=== PATIENT | male | born 1950 | race Caucasian/White ===

== ENCOUNTER 2019-08-11 14:03 | Observation (INO) ==
[2019-08-11] MEDS ORDERED: SODIUM CHLORIDE 0.9% 500 ML IV SCH (14:30)
[2019-08-11] MEDS ORDERED: SODIUM CHLORIDE 0.9% 1000ML 1,000 ML IV SCH (14:30)
[2019-08-11 14:46] LABS: Basophils # (auto) 0.02 K/uL (0-0.2); Basophils % (auto) 0.3 %; Eosinophils # (auto) 0.11 K/uL (0-0.5); Eosinophils % (auto) 1.5 %; Hematocrit (blood only) 34.2 % (42-52); Hemoglobin 11.9 g/dL (14.0-18.0); Immature Granulocytes # (auto) 0.07 K/uL (0.00-0.02); Lymphocytes # (auto) 2.14 K/uL (1.2-3.4); Lymphocytes % (auto) 30.1 %; Mean Corpuscular Hemoglobin 29.5 pg (25-34); Mean Corpuscular Hgb Conc 34.8 g/dL (32-36); Mean Corpuscular Volume 84.7 fL (80-100); Mean Platelet Volume 9.4 fL (7.4-10.4); Monocytes # (auto) 0.67 K/uL (0.11-0.59); Monocytes % (auto) 9.4 %; Neutrophils # (auto) 4.09 K/uL (1.4-6.5); Neutrophils % (auto) 57.7 %; Platelet Count 333 K/uL (130-400); RDW Coefficient of Variation 13.2 % (11.5-14.5); RDW Standard Deviation 40.1 fL (36.4-46.3); Red Blood Count 4.04 M/uL (4.7-6.1)
--- NOTE | 2019-08-11 14:59 | XRay Report ---
SINGLE VIEW CHEST CLINICAL HISTORY: Syncope. FINDINGS: An AP, portable, upright chest radiograph is compared to study dated 05/03/2010. The heart i s enlarged. The pulmonary vasculature is noncongested. There is elevation of the right hemidiaphragm with associated atelectasis. No airspace consolidation or large pleural effusion is identified. No pn eumothorax is seen. The skeletal structures are osteopenic. The bony thorax is grossly intact. Degene rative change is noted in the shoulders. A punctate metallic foreign body projects over the right low er chest. IMPRESSION: Cardiomegaly with no acute cardiopulmonary abnormality. ACT 112: Negative or not required by law. Electronically signed by: Juan Carlos Alcocer M.D. 08/11/2019 2:58 PM
[2019-08-11 15:24] LABS: Alanine Aminotransferase 38 U/L (12-78); Albumin Globulin Ratio 0.9 (0.9-2); Albumin Level 3.5 gm/dl (3.4-5.0); Alkaline Phosphatase 40 U/L (45-117); BUN Creatinine Ratio 12.8 (10-20); Bilirubin,Total 0.3 mg/dl (0.2-1); Blood Urea Nitrogen 16 mg/dl (7-18); Calcium 8.8 mg/dl (8.5-10.1); Carbon Dioxide 22 mmol/L (21-32); Chloride 108 mmol/L (98-107); Creatinine Clr Calc Pharmacy 67.3 ml/min; Est GFR (African American) 68.5; Est GFR (Non-African American) 59.1; Globulin 3.7 gm/dl (2.5-4.0); Glucose 138 mg/dl (70-99); Sodium 138 mmol/L (136-145); Total Protein 7.2 gm/dl (6.4-8.2); Troponin I < 0.015 ng/ml (0-0.045)
--- NOTE | 2019-08-11 15:24 | CT Scan Report ---
CT SCAN OF THE ABDOMEN AND PELVIS WITHOUT IV CONTRAST CLINICAL HISTORY: Syncope. Generalized abdominal pain. COMPARISON STUDY: Radiographs of the lumbar spine dated 07/14/2019. TECHNIQUE: CT scan of the abdomen and pelvis is performed from the lung bases to the proximal femora. Images are reviewed in the axial, sagittal, and coronal planes. IV contrast was not administered for this examination as per the referring clinician. Note that the examination was performed in suboptim al fashion without oral and IV contrast. A dose lowering technique was utilized adhering to the princ iplefrem of KATELYN. CT DOSE: 882.89 mGy.cm FINDINGS: Lung bases: The heart is normal in size and without pericardial effusion. There is a calcified granul tao present in the left lower lobe. The lung bases are otherwise clear noting dependent atelectasis. A metallic foreign body is present within the right anterior chest wall as seen on image #98. A small hiatal hernia is observed. Liver: The unenhanced liver is normal in size, contour, and attenuation. There is no intrahepatic alecia iary ductal dilatation. Gallbladder: Unremarkable. Spleen: Normal in size and attenuation. Scattered calcified splenic granulomas are noted. Pancreas: The unenhanced pancreas is moderately atrophic and grossly unremarkable. Adrenal glands: Unremarkable. Kidneys: The unenhanced kidneys demonstrate cortical atrophy and are without hydronephrosis. There is a 4 mm nonobstructing calculus is noted on the right. There is no evidence of contour deforming jennifer l mass lesion. Abdominal vasculature: The abdominal aorta is normal in course and caliber noting mild atheroscleroti c calcification. Bowel: There is no bowel obstruction. Moderate constipation is observed. The appendix is well-visual ized and normal. Peritoneum: There is no intraperitoneal free air or abdominal ascites. There is mild nonspecific hazi ness in the central mesentery. A small fat-containing umbilical hernia is noted. Lymphadenopathy: None. Pelvic viscera: The bladder, prostate, and seminal vesicles are normal as visualized. Skeletal structures: The skeletal structures are osteopenic. No lytic or blastic lesions are seen. IMPRESSION: 1. There is no evidence of solid organ injury in the abdomen or pelvis on this unenhanced examination . 2. Moderate constipation. 3. There is nonspecific mesenteric haziness, which is of indeterminant etiology and significance. 4. Right-sided nephrolithiasis. 5. Additional findings as above. ACT 112: Negative or not required by law. Electronically signed by: Juan Carlos Alcocer M.D. 08/11/2019 3:23 PM
[2019-08-11 15:56] LABS: Magnesium 2.1 mg/dl (1.8-2.4)
--- NOTE | 2019-08-11 16:30 | Electrocardiogram Report ---
Test Reason : Blood Pressure : / mmHG Vent. Rate : 074 BPM Atrial Rate : 074 BPM P-R Int : 188 ms QRS Dur : 088 ms QT Int : 422 ms P-R-T Axes : 051 049 052 degrees QTc Int : 468 ms Normal sinus rhythm Diffuse Nonspecific T wave abnormality Abnormal ECG When compared with ECG of 24-APR-2010 15:36, Diffuse Nonspecific T wave abnormality now present Confirmed by Juvencio Hough ([id number]) on 08/11/2019 4:30:10 PM Referred By: Confirmed By:Juvencio Hough
[2019-08-11] MEDS ORDERED: ONDANSETRON INJ 2 MG/ML 2 ML VIAL IV STA (17:04)
[2019-08-11] MEDS ORDERED: MoRPHine SULFATE 4 MG/ML 1 ML CARP\\VIAL IV STA (17:04)
[2019-08-11] MEDS ORDERED: HYDROmorphone INJ 0.5 MG/0.5 ML SYR IV STA (18:12)
--- NOTE | 2019-08-11 18:39 | Discharge Summary ---
Date of Service August 11, 2019 Discharge Data Allergies Allergy/AdvReac Type Severity Reaction Status Date / Time No Known Allergies Allergy Unverified 08/11/19 14:52 Consultations 08/11/19 17:29 ED Decision to Admit Stat Ordered Studies 08/11/19 14:07 US point of care ultrasound Stat 08/11/19 14:23 CT abd pelvis wo con Stat Discharge Plan Visit Data Patient Disposition: Being Evaluated by Hospitalist Forms Stand Alone Forms: [facility] Prescriptions Prescriptions: No Action citalopram 40 mg tablet 40 mg PO QAM RF: 0 metformin 1,000 mg tablet 1,000 mg PO BID RF: 0 oxycodone-acetaminophen [Percocet] 5-325 mg tablet 1 tab PO Q6H PRN (Reason: Pain) RF: 0 cyclobenzaprine 10 mg tablet 10 mg PO TID PRN (Reason: Muscle Spasm) RF: 0 naproxen [Naprosyn] 500 mg Tablet 500 mg PO BID PRN (Reason: Pain) RF: 0 fenofibrate nanocrystallized 145 mg tablet 145 mg PO QAM RF: 0 Equate Multivitamin Gummie Vit 2 tab PO QAM RF: 0 Referrals Referrals: RAJESH HARDEN [Other]
--- NOTE | 2019-08-11 18:46 | History & Physical Report ---
Date of Service August 11, 2019 Assessment & Plan (1) Syncope: Present on admission after witness 2 syncopal episodes after having abdominal pain and vomiting Possible related to vasovagal No focal neuro deficit Will monitor in Tele Will get a resting ECHO Continue monitor closely (2) Abdominal pain: Abdominal hernia CT abd/pelvis showed moderate constipation and nonspecific mesenteric haziness, which is of indeterminant etiology and significance. Abdominal hernia seems to get bigger as per family Will consult surgery (3) Back pain with left-sided radiculopathy: Chronic back pain was schedule to have a MRI of the back yesterday Continue pain control with IV morphine and oxycodone Will talk to Dr. Walton to see if he wants him to get the MRI while inpatient Consider PT/OT eval Diabetes type 2 Will hold metformin Check Hba1c On Novolog sliding scale Monitor BP Obesity Counseling on weight loss DVT px on Heparin subq CODE STATUS FULL CODE History of Present Illness Chief Complaint: Syncope/Abdominal Pain Primary Care Provider: Evita Thakkar, DO 69 yo M with PMH of Diabetes, chronic back pain, obesity was brought to the ER for syncopal episodes. Pt said that while on his way to get his MRI back, he said that he developed severe abdominal pain where he felt that he had to use the bathroom and sweating. He said that he felt dizzy. He said that his son was driving and pulled over. He said that he vomited and passed out. The son said that his eyes were rolling and his dad was unresponsive for about 2 minutes. Son said that he was scared and started to do CPR on his dad. He said that his dad was soak with sweat. Pt has a second episode of syncope while coming to the hospital by EMS. as per EMS his BP dropped during the episode. Pt said that he did not have any chest pain or palpitation during the episode. Pt said that he has been having a lot of back pain that radiating to his LLE. He said that he was scheduled to have an MRI done today. Son said that his abdominal hernia is getting bigger and causing him to have abdominal tenderness. Currently pt denies any chest pain, palpitation, dizziness and SOB. Allergies Allergy/AdvReac Type Severity Reaction Status Date / Time No Known Allergies Allergy Unverified 08/11/19 14:52 Home Medications Home Medications Medication Instructions Recorded Confirmed Type citalopram 40 mg tablet 40 mg PO QAM 07/14/19 08/11/19 History metformin 1,000 mg tablet 1,000 mg PO BID 07/14/19 08/11/19 History oxycodone-acetaminophen 5 mg-325 1 tab PO Q6H PRN 07/14/19 08/11/19 History mg tablet Equate Multivitamin Gummie Vit 2 tab PO QAM 08/11/19 08/11/19 History cyclobenzaprine 10 mg PO TID PRN 08/11/19 08/11/19 History fenofibrate nanocrystallized 145 mg PO QAM 08/11/19 08/11/19 History naproxen [Naprosyn] 500 mg PO BID PRN 08/11/19 08/11/19 History Past Med/Surg History Medical History Diabetes Dyslipidemia Hernia Lumbar spondylosis Obesity Social History Preferred Language: Azeri Communication Ability: Effective Beliefs That Will Affect Care: None Current Living Situation: Other Current Living Situation Comment: lives with a friend Feels Safe at Home: Yes Safety Concerns: Feels Safe At This Time Smoking Status: Never smoker Hx Alcohol Use: No Hx Substance Use: No Review of Systems Review of Systems: All systems reviewed & are unremarkable except as noted in HPI & below Physical Exam Physical Exam: General- No acute distress Head- atraumatic Eyes- PERRL, EOMI, ENT- oropharynx clear Neck- supple, no JVD Lungs- clear to auscultation Heart- regular rhythm; no murmur Abdomen- normal bowel sounds, +tenderness, +abdominal hernia Extremities- no calf tenderness Neuro- alert, oriented x 3; PERRL, EOMI; no facial palsy; no dysarthria Skin- warm & dry Results & Data Vital Signs (Past 12 Hours) Vital Signs Temp Pulse Resp BP Pulse Ox 08/11/19 18:30 72 21 133/85 96 08/11/19 18:00 73 20 122/80 96 08/11/19 17:30 71 14 132/86 97 08/11/19 17:00 68 17 163/93 H 98 08/11/19 16:30 68 18 153/87 H 98 08/11/19 16:00 76 14 109/86 100 08/11/19 15:30 65 12 140/83 98 08/11/19 15:05 68 25 H 130/86 99 08/11/19 14:30 69 18 108/75 93 08/11/19 14:12 36.3 C L 67 20 109/[address] SCAN OF THE ABDOMEN AND PELVIS WITHOUT IV CONTRAST CLINICAL HISTORY: Syncope. Generalized abdominal pain. COMPARISON STUDY: Radiographs of the lumbar spine dated 07/14/2019. TECHNIQUE: CT scan of the abdomen and pelvis is performed from the lung bases to the proximal femora. Images are reviewed in the axial, sagittal, and coronal planes. IV contrast was not administered for this examination as per the referring clinician. Note that the examination was performed in suboptimal fashion without oral and IV contrast. A dose lowering technique was utilized adhering to the principles of ALARA. CT DOSE: 882.89 mGy.cm FINDINGS: Lung bases: The heart is normal in size and without pericardial effusion. There is a calcified granuloma present in the left lower lobe. The lung bases are otherwise clear noting dependent atelectasis. A metallic foreign body is present within the right anterior chest wall as seen on image #98. A small hiatal hernia is observed. Liver: The unenhanced liver is normal in size, contour, and attenuation. There is no intrahepatic biliary ductal dilatation. Gallbladder: Unremarkable. Spleen: Normal in size and attenuation. Scattered calcified splenic granulomas are noted. Pancreas: The unenhanced pancreas is moderately atrophic and grossly unremarkable. Adrenal glands: Unremarkable. Kidneys: The unenhanced kidneys demonstrate cortical atrophy and are without hydronephrosis. There is a 4 mm nonobstructing calculus is noted on the right. There is no evidence of contour deforming renal mass lesion. Abdominal vasculature: The abdominal aorta is normal in course and caliber noting mild atherosclerotic calcification. Bowel: There is no bowel obstruction. Moderate constipation is observed. The appendix is well-visualized and normal. Peritoneum: There is no intraperitoneal free air or abdominal ascites. There is mild nonspecific haziness in the central mesentery. A small fat-containing um bilical hernia is noted. Lymphadenopathy: None. Pelvic viscera: The bladder, prostate, and seminal vesicles are normal as visualized. Skeletal structures: The skeletal structures are osteopenic. No lytic or blastic lesions are seen. IMPRESSION: 1. There is no evidence of solid organ injury in the abdomen or pelvis on this unenhanced examination. 2. Moderate constipation. 3. There is nonspecific mesenteric haziness, which is of indeterminant etiology and significance. 4. Right-sided nephrolithiasis. 5. Additional findings as above. ACT 112: Negative or not required by law. Electronically signed by: Juan Carlos Alcocer M.D. 08/11/2019 3:23 PM Dictated: 08/11/19 1509 Transcribed: 08/11/19 1516 SINGLE VIEW CHEST CLINICAL HISTORY: Syncope. FINDINGS: An AP, portable, upright chest radiograph is compared to study dated 05/03/2010. The heart is enlarged. The pulmonary vasculature is noncongested. There is elevation of the right hemidiaphragm with associated atelectasis. No a irspace consolidation or large pleural effusion is identified. No pneumothorax is seen. The skeletal structures are osteopenic. The bony thorax is grossly intact. Degenerative change is noted in the shoulders. A punctate metallic foreign body projects over the right lower chest. IMPRESSION: Cardiomegaly with no acute cardiopulmonary abnormality. ACT 112: Negative or not required by law. Electronically signed by: Juan Carlos Alcocer M.D. 08/11/2019 2:58 PM Dictated: 08/11/19 1457 Transcribed: 08/11/19 1457 (1) Syncope Syncope type: unspecified Qualified Code(s): R55 - Syncope and collapse (2) Abdominal pain Abdominal location: unspecified location Qualified Code(s): R10.9 - Unspecified abdominal pain
[2019-08-11] MEDS ORDERED: MoRPHine SULFATE 2 MG/ML CARP IV PRN (19:54)
[2019-08-11] MEDS ORDERED: CARBOHYDRATES FOR HYPOGLYCEMIA PO PRN (19:54)
[2019-08-11] MEDS ORDERED: POLYETHYLENE (MIRALAX) 17 GM PACK PO PRN (19:54)
[2019-08-11] MEDS ORDERED: ONDANSETRON INJ 2 MG/ML 2 ML VIAL IV PRN (19:54)
[2019-08-11] MEDS ORDERED: GLUCOSE 10 TABS/TUBE PO PRN (19:54)
[2019-08-11] MEDS ORDERED: CYCLOBENZAPRINE HCL 10 MG TAB PO PRN (19:54)
[2019-08-11] MEDS ORDERED: GLUCAGON FOR INJ 1 MG VIAL SQ PRN (19:54)
[2019-08-11] MEDS ORDERED: OXYCODONE/ACETAMINOPHEN 5mg/325mg TAB PO PRN (19:54)
[2019-08-11] MEDS ORDERED: GLUCOSE 40% GEL 15 GM TUBE PO PRN (19:54)
[2019-08-11] MEDS ORDERED: DEXTROSE 50% 50 ML SYRINGE IV PRN (19:54)
--- NOTE | 2019-08-11 20:55 | Emergency Department Note ---
Entered by Cherelle Ramos acting as a scribe for ED Provider Note CHIEF COMPLAINT: Abdominal pain HISTORY OF PRESENT ILLNESS: The patient is a 69 year old male who presents to the Emergency Room with complaints of a syncopal episode occurred this afternoon. The patient reports that he was driving to an MRI when he started having a severe pain in his abdomen that he rates as a 10/10. He states that he had some associated nausea. He notes that he then became syncopal. The patient's friend reports that the patient was pale and diaphoretic when he regained consciousness. His friend states that the patient's eyes rolled back into his head during the syncopal episode. The patient notes that he felt like he needed to have a bowel movement after he woke up. He states that he feels generally well upon exam. He denies any similar episodes in the past. He denies any recent travel. He denies any past abdominal surgeries. He notes that he has a history of chronic back pain and has had difficulty walking recently. The patient arrived to the ED via EMS. EMS reports that the patient continued to be pale and diaphoretic when they arrived. EMS states that the patient's blood pressure was noted to be 90/60 at that time. EMS notes that the patient had a second syncopal episode in the ambulance on the way to the ED. EMS states that t he patient's blood pressure dropped to 84/50 before recovering to 110/60 upon arrival to the ED. EMS notes that the patient's heart rate dropped to 40bpm briefly before recovering. EMS reports that the patient is diabetic and that his blood glucose was 155mg/dL. Pt denies LOC, headache, fevers, chills, visual changes, neck pain, chest pain, breathing difficulties, vomiting, melena, hematochezia, urinary symptoms, numbness, lymphadenopathy, rash, or other complaints. REVIEW OF SYSTEMS: See HPI for pertinent positives and negatives. A total of ten systems were reviewed and were otherwise negative. PMHx/PSHx: Hernia Lumbar spondylosis SOCIAL HISTORY: Patient lives at home. He is a never smoker. PHYSICAL EXAM: GENERAL: Awake, alert, pale and tired appearing, in no distress HENT: Normocephalic, atraumatic. Oropharynx unremarkable. EYES: PERRL. Normal conjunctiva. Sclera non-icteric. NECK: Inspection normal. Non-tender. Supple. No nuchal rigidity. FROM. No masses. RESPIRATORY: Clear to auscultation. No wheezes. No rales. Normal respiratory effort. CARDIAC: Normal rate. Normal rhythm. No murmurs. No rubs. Extremities warm and well perfused. Pulses equal. No JVD. GI: Soft. No tenderness to palpation. No rebound or guarding. Reducible umbilical hernia. Diastasis of rectus muscles. RECTAL: Deferred. MUSCULOSKELETAL: Atraumatic. Chest examination reveals no tenderness. The back is symmetrical on inspection without obvious abnormality. There is no CVA tenderness to palpation. No joint edema. LOWER EXTREMITIES: Calves are equal size bilaterally and non-tender. No edema. No discoloration. NEURO: Normal sensorium. No sensory or motor deficits noted. SKIN: No rash or jaundice noted. EMERGENCY DEPARTMENT COURSE: 1410: The patient was evaluated in room B12B, and a complete history and physical examination were performed. 1650: I updated the patient on his current lab and imaging results. Patient is experiencing pain secondary to sciatica and additional medication has been or dered. The patient verbalized agreement with the treatment plan. He will be evaluated for further care by a hospitalist. 1735: I discussed the patient's case with Ernie Yang, who will juliet luate the patient for further management and care. MEDICAL DECISION MAKING: Continuous Cardiac Monitoring: An order was placed for continuous cardiac monitoring. The monitor shows a rate of [] with [rhythm]. Triage Nursing notes reviewed and agree them. Additional history obtained from the patient's friend and family The patient's history was concerning for syncope abdominal pain. Differential diagnosis: Etiologies such as infection, hypoglycemia, electrolyte abnormalities, cardiac sources, intracerebral event, toxicologic, neurologic, renal colic, obstruction, AAA, as well as others were entertained. Physical examination: As above. Patient with nonfocal. Abdominal examination did not reveal any significant tenderness. ER treatment provided: IV hydration with normal saline On reassessment the patient felt increasing low back pain radiating into his leg. This is the issue that he has had chronically and why he was having the MRI. IV Zofran 4 mg IV morphine 4 mg The patient still had pain. IV Dilaudid Diagnostics interpretation by me: ECG: Sinus rhythm without dysrhythmia or ischemia. The labs revealed an unremarkable CBC and chemistry panel except for slight anemia. Imaging studies: A bedside fast examination was performed by me and did not reveal any acute findings as noted below. CT imaging of the abdomen and pelvis was performed and revealed some nonspecific stranding in the mesentery. There were no acute findings otherwise. Chest x-ray was performed and showed some mild cardiomegaly otherwise was negative. The patient had 2 syncopal episodes and had abdominal pain. The exact etiology is not obvious at this time but given the scenario further management and monitoring in the hospital is warranted. Consultation: A consultation was placed with the hospitalist. The case was discussed and diagnostics were reviewed. The patient was evaluated in the ER for further treatment. Limited Point of Care FAST Ultrasound performed by me: Indication: Syncope and abdominal pain Findings: Limited cardiac ultrasonography via subxiphoid and parasternal long view showed cardiac wall motion activity, no pericardial fluid, no tamponade. Limited abdominal ultrasound revealed no free fluid within Morrisons pouch, splenorenal space, or the pouch of Kwesi. Impression: Negative FAST exam. IMPRESSION: Syncope Abdominal pain PLAN: Being evaluated by a hospitalist The scribe's documentation has been prepared under my direction and personally reviewed by me in its entirety. I confirm that the note above accurately reflects all work, treatment, procedures, and medical decision making performed by me. Impression & Plan Syncope, Abdominal pain Past Med/Surg History Medical History Hernia Social History Preferred Language: Yemeni Communication Ability: Effective Beliefs That Will Affect Care: None Current Living Situation: Other Current Living Situation Comment: lives with a friend Feels Safe at Home: Yes Safety Concerns: Feels Safe At This Time Smoking Status: Never smoker Hx Alcohol Use: No Hx Substance Use: No Results & Data Vital Signs Vital Signs - 24 hr 08/11/19 14:12 08/11/19 14:30 08/11/19 15:05 Temperature 36.3 C L Temperature Source Oral Pulse Rate 67 69 68 Pulse Rate from SpO2 Sensor 69 68 Respiratory Rate 20 18 25 H Respiratory Effort / Characteristics Non-Labored Respiratory Depth Normal Blood Pressure 109/72 108/75 130/86 Blood Pressure Mean 84 83 89 Blood Pressure Position Sitting Pulse Oximetry 93 93 99 Oxygen Delivery Method Room Air Room Air Sepsis Recent Fever Within 48 Hours No Sepsis Action Taken by Nursing No Action Required 08/11/19 15:30 08/11/19 16:00 08/11/19 16:30 Temperature Temperature Source Pulse Rate 65 76 68 Pulse Rate from SpO2 Sensor 66 76 68 Respiratory Rate 12 14 18 Respiratory Effort / Characteristics Respiratory Depth Blood Pressure 140/83 109/86 153/87 H Blood Pressure Mean 102 92 109 Blood Pressure Position Pulse Oximetry 98 100 98 Oxygen Delivery Method Room Air Room Air Room Air Sepsis Recent Fever Within 48 Hours Sepsis Action Taken by Nursing 08/11/19 17:00 08/11/19 17:30 08/11/19 18:00 Temperature Temperature Source Pulse Rate 68 71 73 Pulse Rate from SpO2 Sensor 69 70 73 Respiratory Rate 17 14 20 Respiratory Effort / Characteristics Respiratory Depth Blood Pressure 163/93 H 132/86 122/80 Blood Pressure Mean 123 92 87 Blood Pressure Position Pulse Oximetry 98 97 96 Oxygen Delivery Method Room Air Room Air Room Air Sepsis Recent Fever Within 48 Hours Sepsis Action Taken by Nursing 08/11/19 18:30 08/11/19 19:00 Temperature Temperature Source Pulse Rate 72 70 Pulse Rate from SpO2 Sensor 72 70 Respiratory Rate 21 16 Respiratory Effort / Characteristics Respiratory Depth Blood Pressure 133/85 131/84 Blood Pressure Mean 91 94 Blood Pressure Position Pulse Oximetry 96 95 Oxygen Delivery Method Room Air Room Air Sepsis Recent Fever Within 48 Hours Sepsis Action Taken by Snf Medications Current Medication List: was personally reviewed by me Laboratory Data Attestation: I reviewed the patient's lab results. Result diagrams: 08/11/19 14:30 08/11/19 15:28 Lab Results 08/11/19 08/11/19 08/11/19 Range/Units 14:30 14:30 15:28 WBC 7.10 (4.8-10.8) K/uL RBC 4.04 L (4.7-6.1) M/uL Hgb 11.9 L (14.0-18.0) g/dL Hct 34.2 L (42-52) % MCV 84.7 (80-100) fL MCH 29.5 (25-34) pg MCHC 34.8 (32-36) g/dL RDW Std Deviation 40.1 (36.4-46.3) fL RDW Coeff of Jonny 13.2 (11.5-14.5) % Plt Count 333 (130-400) K/uL MPV 9.4 (7.4-10.4) fL Immature Gran % (Auto) 1.0 % Neut % (Auto) 57.7 % Lymph % (Auto) 30.1 % Aurora % (Auto) 9.4 % Eos % (Auto) 1.5 % Baso % (Auto) 0.3 % Immature Gran # (Auto) 0.07 H (0.00-0.02) K/uL Neut # (Auto) 4.09 (1.4-6.5) K/uL Lymph # (Auto) 2.14 (1.2-3.4) K/uL Aurora # (Auto) 0.67 H (0.11-0.59) K/uL Eos # (Auto) 0.11 (0-0.5) K/uL Baso # (Auto) 0.02 (0-0.2) K/uL Sodium 138 (136-145) mmol/L Potassium 4.0 (3.5-5.1) mmol/L Chloride 108 H (98-107) mmol/L Carbon Dioxide 22 (21-32) mmol/L Anion Gap 8.0 (3-11) BUN 16 (7-18) mg/dl Creatinine 1.23 (0.6-1.4) mg/dl Est Cr Clr Drug Dosing 67.3 ml/min Est GFR ( Amer) 68.5 Est GFR (Non-Af Amer) 59.1 BUN/Creatinine Ratio 12.8 (10-20) Glucose 138 H (70-99) mg/dl Calcium 8.8 (8.5-10.1) mg/dl Magnesium 2.1 (1.8-2.4) mg/dl Total Bilirubin 0.3 (0.2-1) mg/dl AST 14 L (15-37) U/L ALT 38 (12-78) U/L Alkaline Phosphatase 40 L (45-117) U/L Troponin I < 0.015 (0-0.045) ng/ml Total Protein 7.2 (6.4-8.2) gm/dl Albumin 3.5 (3.4-5.0) gm/dl Globulin 3.7 (2.5-4.0) gm/dl Albumin/Globulin Ratio 0.9 (0.9-2) TSH 2.260 (0.300-4.500) uIu/ml Administered Medications Sodium Chloride (Nss 1000ml) 1,000 mls @ 125 mls/hr IV .Q8H HANNAH Stop: 08/11/19 22:29 Last Admin: 08/11/19 15:30 Dose: 125 mls/hr Documented by: [id number] Discontinued Medications Hydromorphone HCl (Dilaudid) 0.5 mg IV NOW STA Stop: 08/11/19 18:13 Last Admin: 08/11/19 18:28 Dose: 0.5 mg Documented by: [id number] Sodium Chloride (Nss) 500 mls @ 999 mls/hr IV .Q31M HANNAH Stop: 08/11/19 15:00 Last Infusion: 08/11/19 15:19 Dose: 0 mls/hr Documented by: [id number] Admin: 08/11/19 14:40 Dose: 999 mls/hr Documented by: [id number] Morphine Sulfate (Morphine Sulfate) 4 mg IV NOW STA Stop: 08/11/19 17:05 Last Admin: 08/11/19 17:18 Dose: 4 mg Documented by: [id number] Ondansetron HCl (Zofran) 4 mg IV NOW STA Stop: 08/11/19 17:05 Last Admin: 08/11/19 17:18 Dose: 4 mg Documented by: [id number] Imaging Data Radiologist's Impression: Radiology results as stated below per my review and the radiologist's interpretation: CT SCAN OF THE ABDOMEN AND PELVIS WITHOUT IV CONTRAST CLINICAL HISTORY: Syncope. Generalized abdominal pain. COMPARISON STUDY: Radiographs of the lumbar spine dated 07/14/2019. TECHNIQUE: CT scan of the abdomen and pelvis is performed from the lung bases to the proximal femora. Images are reviewed in the axial, sagittal, and coronal planes. IV contrast was not administered for this examination as per the referring clinician. Note that the examination was performed in suboptimal fashion without oral and IV contrast. A dose lowering technique was utilized adhering to the principles of ALARA. CT DOSE: 882.89 mGy.cm FINDINGS: Lung bases: The heart is normal in size and without pericardial effusion. There is a calcified granuloma present in the left lower lobe. The lung bases are otherwise clear noting dependent atelectasis. A metallic foreign body is present within the right anterior chest wall as seen on image #98. A small hiatal hernia is observed. Liver: The unenhanced liver is normal in size, contour, and attenuation. There is no intrahepatic biliary ductal dilatation. Gallbladder: Unremarkable. Spleen: Normal in size and attenuation. Scattered calcified splenic granulomas a re noted. Pancreas: The unenhanced pancreas is moderately atrophic and grossly unremarkable. Adrenal glands: Unremarkable. Kidneys: The unenhanced kidneys demonstrate cortical atrophy and are without hydronephrosis. There is a 4 mm nonobstructing calculus is noted on the right. There is no evidence of contour deforming renal mass lesion. Abdominal vasculature: The abdominal aorta is normal in course and caliber noting mild atherosclerotic calcification. Bowel: There is no bowel obstruction. Moderate constipation is observed. The appendix is well-visualized and normal. Peritoneum: There is no intraperitoneal free air or abdominal ascites. There is mild nonspecific haziness in the central mesentery. A small fat-containing umbilical hernia is noted. Lymphadenopathy: None. Pelvic viscera: The bladder, prostate, and seminal vesicles are normal as visualized. Skeletal structures: The skeletal structures are osteopenic. No lytic or blastic lesions are seen. IMPRESSION: 1. There is no evidence of solid organ injury in the abdomen or pelvis on this unenhanced examination. 2. Moderate constipation. 3. There is nonspecific mesenteric haziness, which is of indeterminant etiology and significance. 4. Right-sided nephrolithiasis. 5. Additional findings as above. ACT 112: Negative or not required by law. Electronically signed by: Juan Carlos Alcocer M.D. 08/11/2019 3:23 PM SINGLE VIEW CHEST CLINICAL HISTORY: Syncope. FINDINGS: An AP, portable, upright chest radiograph is compared to study dated 05/03/2010. The heart is enlarged. The pulmonary vasculature is noncongested. There is elevation of the right hemidiaphragm with associated atelectasis. No airspace consolidation or large pleural effusion is identified. No pneumothorax is seen. The skeletal structures are osteopenic. The bony thorax is grossly intact. Degenerative change is noted in the shoulders. A punctate metallic foreign body projects over the right lower chest. IMPRESSION: Cardiomegaly with no acute cardiopulmonary abnormality. ACT 112: Negative or not required by law. Electronically signed by: Juan Carlos Alcocer M.D. 08/11/2019 2:58 PM ECG Data Attestation: I personally reviewed and interpreted this ECG as follows: Indication: + abdominal pain Rate (beats per minute): 74 Rhythm: normal sinus ECG Intervals/blocks: + Normal QRS and + Prolonged QT ECG [place]: + Normal ECG ST segments: + Nonspecific ST abnormalities; no ST depression and no ST elevation Blood Pressure Blood Pressure Findings: Normal blood pressure Discharge Plan Visit Data *Final* Discharge Date/Time: 08/11/19 19:17 Chief Complaint: Syncope Stated Complaint: syncope/abd pain ED Provider: Patricio Larios Discharge Problem: Syncope, Abdominal pain Patient Disposition: Admitted As Inpatient Discharge Instructions Interventions: ED Discharge Assessment Last Done: 08/11/19 19:17 Discharge Problem: Syncope Qualifiers: Syncope type: unspecified Qualified Code(s): R55 - Syncope and collapse Abdominal pain Qualifiers: Abdominal location: unspecified location Qualified Code(s): R10.9 - Unspecified abdominal pain The scribe's documentation has been prepared under my direction and personally reviewed by me in its entirety. I confirm that the note above accurately reflects all work, treatment, procedures, and medical decision making performed by me.
[2019-08-11] MEDS: INSULIN ASPART 100 UNITS/ML 3 ML PEN SC SCH (21:40)
[2019-08-11] MEDS: HEPARIN SOD 5,000 UNIT/0.5 ML VIAL SQ SCH (21:41)
[2019-08-11] MEDS ORDERED: HYDROmorphone INJ 0.5 MG/0.5 ML SYR ONE (23:36)
[2019-08-11] MEDS: HYDROmorphone INJ 0.5 MG/0.5 ML SYR IV PRN (23:38)
[2019-08-12] MEDS: HEPARIN SOD 5,000 UNIT/0.5 ML VIAL SQ SCH ×3 (06:10→21:50)
[2019-08-12] MEDS: HYDROmorphone INJ 0.5 MG/0.5 ML SYR IV PRN ×4 (06:11→21:53)
[2019-08-12 08:23] LABS: BUN Creatinine Ratio 11.3 (10-20); Calcium 8.8 mg/dl (8.5-10.1); Creatinine Clr Calc Pharmacy 80.5 ml/min; Est GFR (Non-African American) 75.9; Potassium 4.2 mmol/L (3.5-5.1)
[2019-08-12] MEDS: CITALOPRAM 40 MG TAB PO SCH (09:09)
[2019-08-12] MEDS: INSULIN ASPART 100 UNITS/ML 3 ML PEN SC SCH ×4 (09:09→20:34)
[2019-08-12] MEDS: FENOFIBRATE NANOCRYSTALLIZED 145 MG TABLET PO SCH (09:09)
--- NOTE | 2019-08-12 09:28 | Surgery Consultation ---
Date of Consultation August 12, 2019 Assessment & Plan (1) Diastasis recti: Has a tiny, asymptomatic umbilical hernia and diastasis recti. I explained this to him and reassured him that nothing needs to be done for his diastasis. Continue diet as tolerated. as above. no urgent surgical needs at this time. can f/u with me as an out-pt for the umbilical hernia if he chooses. suspect he had a vasovagal syncope. will sign off/call if needed. thank you. History of Present Illness Attending Physician: Sharmila Calderón MD History of Present Illness 69 y/o male had syncope while on his way to MRI/Dr. Walton for chronic lumbar pain. Had second episode while in the ambulance. Had some abdominal pain/felt like he had to have BM while prior to the pain beginning. Pain is now nearly resolved, has a little tenderness in LLQ. Has no had BM, recent constipation or diarrhea.No nausea at present, wants to have breakfast. Thought maybe his symptoms were related to undercooked breakfast sausage he had yesterday. Had recent colonoscopy although prep was incomplete and he has another one scheduled in a few months. We were asked to see him for a hernia. Allergies Allergy/AdvReac Type Severity Reaction Status Date / Time No Known Allergies Allergy Unverified 08/11/19 14:52 Home Medications Home Medications Medication Instructions Recorded Confirmed Type citalopram 40 mg tablet 40 mg PO QAM 07/14/19 08/11/19 History metformin 1,000 mg tablet 1,000 mg PO BID 07/14/19 08/11/19 History oxycodone-acetaminophen 5 mg-325 1 tab PO Q6H PRN 07/14/19 08/11/19 History mg tablet Equate Multivitamin Gummie Vit 2 tab PO QAM 08/11/19 08/11/19 History cyclobenzaprine 10 mg PO TID PRN 08/11/19 08/11/19 History fenofibrate nanocrystallized 145 mg PO QAM 08/11/19 08/11/19 History naproxen [Naprosyn] 500 mg PO BID PRN 08/11/19 08/11/19 History Patient History Medical History Diabetes Dyslipidemia Hernia Lumbar spondylosis Obesity Social History Preferred Language: Kinyarwanda Communication Ability: Effective Beliefs That Will Affect Care: None Current Living Situation: Other Current Living Situation Comment: lives with a friend Feels Safe at Home: Yes Safety Concerns: Feels Safe At This Time Smoking Status: Never smoker Hx Alcohol Use: No Hx Substance Use: No Review of Systems Constitutional: no fever and no chills Gastrointestinal: + abdominal pain, + nausea and + vomiting; no change in bow el habits, no change in stools, no constipation, no diarrhea/loose stools, no blood in stools and no melena Physical Exam Constitutional: WD/WN, vitals as above Respiratory: normal respiratory effort, lungs clear to auscultation Cardiovascular: RRR, no murmur, no edema Gastrointestinal (Abdomen): Percussion/Palpation: + abdomen tender (minimal LLQ) and abdomen soft less than pea sized umbilical hernia soft & easily reducible, has diastasis recti Results & Data Vital Signs (Past 12 Hours) Vital Signs Temp Pulse Resp BP Pulse Ox 08/12/19 07:40 36.6 C 72 20 149/89 H 94 08/12/19 03:10 36.8 C 76 18 131/89 92 08/11/19 23:45 36.9 C 78 18 138/84 93 PG Care Time/CCT Total # of Minutes Spent Total Time Spent with Patient: Total time spent is greater than 50% in coordination of care (as documented) at patient's floor/unit and/or counseling patient: Coding Level of Care Code 12180 Initial Inpt Care Lvl 1 Diagnoses Diastasis recti M62.08
[2019-08-12 10:13] LABS: Estimated Average Glucose 160 mg/dl; Hemoglobin A1C 7.2 % (4.5-5.6)
--- NOTE | 2019-08-12 10:35 | Ultrasound Report ---
US carotid doppler BI CLINICAL HISTORY: 69 years-old Male with syncope. Acute syncopal event COMPARISON: None TECHNIQUE: Multiple real time sonographic images of the carotid bifurcations were obtained assessing arredondo scale, color Doppler and spectral wave form appearance FINDINGS: RIGHT CAROTID: The peak systolic velocity within the right ICA is measured at62 cm/sec. The end candice stolic velocity measured 25 cm/sec. The ICA to CCA ratio measured 0.8 which correlates with a stenos is of 0-50%. Mild mixed plaque of the right carotid bulb and proximal right ICA. LEFT CAROTID: The peak systolic velocity within the left ICA is measured at59 cm/sec. The end diast olic velocity measured 25 cm/sec. The ICA to CCA ratio measured 0.7 which correlates with a stenosis of 0-50%. Mild mixed plaque of the left carotid bulb and proximal left ICA. There is normal antegrade vertebral flow bilaterally. Blood pressures were not conducted secondary to patient's upper extremity IV catheter. IMPRESSION: 1. No hemodynamically significant stenosis or significant atherosclerotic plaquing. 2. Normal antegrade vertebral flow bilaterally. ACT 112: Negative or not required by law. The above report was generated using voice recognition software. It may contain grammatical, syntax o r spelling errors. Electronically signed by: Benji Rodriguez M.D. 08/12/2019 10:34 AM
--- NOTE | 2019-08-12 14:53 | Electrocardiogram Report ---
Test Reason : Blood Pressure : / mmHG Vent. Rate : 073 BPM Atrial Rate : 073 BPM P-R Int : 190 ms QRS Dur : 090 ms QT Int : 416 ms P-R-T Axes : 065 055 057 degrees QTc Int : 458 ms Normal sinus rhythm Normal ECG When compared with ECG of 11-AUG-2019 14:10, Nonspecific T wave abnormality no longer present Confirmed by Juvencio Hough ([id number]) on 08/12/2019 2:53:39 PM Referred By: REFERRED SELF Confirmed By:Juvencio Hough
[2019-08-12] MEDS ORDERED: bisacodyL 5 MG TABEC PO ONE (17:09)
--- NOTE | 2019-08-12 18:51 | Hospitalist Progress Note ---
Date of Service August 12, 2019 Assessment & Plan (1) Syncope: Present on admission after witness 2 syncopal episodes after having abdominal pain and vomiting Possible related to vasovagal Carotid doppler showed no hemodynamically significant stenosis or significant atherosclerotic plaquing. ECHO showed no wall motion abnormality with EF btw 55-60 % No focal neuro deficit Continue monitor closely Clinically stable (2) Abdominal pain: Abdominal hernia CT abd/pelvis showed moderate constipation and nonspecific mesenteric haziness, which is of indeterminant etiology and significance. Surgery on board and no surgical intervention required at this time Continue monitor outpatient (3) Back pain with left-sided radiculopathy: Chronic back pain was schedule to have a MRI of the back yesterday but ended up in the hospital Continue pain control with IV morphine and oxycodone Case discussed with Dr. Walton and recommended to get the MRI without contrast of the back Base on the MRI result will decide if Dr. Walton wants to see him in the hospital or outpatient Consider PT/OT eval Diabetes type 2 Continue to hold metformin Hba1c 7.2 On Novolog sliding scale Monitor BS Obesity Counseling on weight loss DVT px on Heparin subq CODE STATUS FULL CODE Disposition Will discharge home if MRI Lumbar spine is unremarkable Admission and Anticipated Discharge Date Admission Date: August 11, 2019 Subjective Pt was seen and examined Lying in bed with no distress Pt said that he is having a lot of pain in his back He said that pain worsening with movement I spoke to Dr. Walton that recommended to get the MRI done while in the hospital Pt said that he has not had a BM in the last 2-3 days Denies any chest pain, palpitation and SOB Physical Exam Physical Exam: General- No acute distress Head- atraumatic Eyes- PERRL, EOMI, ENT- oropharynx clear Neck- supple, no JVD Lungs- clear to auscultation Heart- regular rhythm; no murmur Abdomen- normal bowel sounds, +tenderness, +abdominal hernia Extremities- no calf tenderness Neuro- alert, oriented x 3; PERRL, EOMI; no facial palsy; no dysarthria Skin- warm & dry Results & Data ([facility]) Vital Signs (Past 12 Hours) Vital Signs Temp Pulse Pulse Resp BP BP Pulse Ox 08/12/19 16:04 36.8 C 69 18 157/93 H 96 08/12/19 10:57 36.6 C 81 20 161/94 H 93 08/12/19 08:00 73 08/12/19 07:40 36.6 C 72 20 149/89 H 94 (1) Syncope Syncope type: unspecified Qualified Code(s): R55 - Syncope and collapse (2) Abdominal pain Abdominal location: unspecified location Qualified Code(s): R10.9 - Unspecified abdominal pain
--- NOTE | 2019-08-12 21:37 | Magnetic Resonance Report ---
MR lumbar spine wo con HISTORY: Back pain. Radiculopathy. back pain radiating to the back TECHNIQUE: Multiplanar multisequence MRI of the lumbar spine was performed without the use of contras t. COMPARISON: None. FINDINGS: For the purpose of the report the L5-S1 disc space will be located on axial image 27 of 30. Moderate degenerative disc changes throughout. Benign vertebral body hemangioma at L3. Moderate degen erative change vertebral endplates. L1-L2: No significant central canal or neural foraminal narrowing. L2-L3: Mild broad-based bulging disc. Mild impact anterior thecal sac. Minimal narrowing of the neura l foramina. L3-L4: Moderate multifactorial spinal stenosis. Broad-based disc herniation. Hypertrophic change post erior elements. Moderate narrowing of the neural foramina bilaterally. L4-L5: Mild multifactorial narrowing of the spinal canal. Mild broad-based bulging disc. Minimal impa ct upon the neural foramina. L5-S1: Broad-based left central bulging disc. Moderate narrowing left neural foramina. Minimal impact anterior thecal sac. Moderate deterioration of the posterior elements. IMPRESSION: 1. Moderate degenerative disc changes throughout. 2. Moderate rather significant multifactorial spinal stenosis L3-L4. 3. Broad-based bulging disc L4-L5 and L5-S1 with minimal disc bulges at L2-L3 ACT 112: Negative or not required by law. The above report was generated using voice recognition software. It may contain grammatical, syntax or spelling errors. Electronically signed by: Barrett Gusman M.D. 08/12/2019 9:35 PM
[2019-08-13] MEDS: HYDROmorphone INJ 0.5 MG/0.5 ML SYR IV PRN ×4 (02:02→13:52)
[2019-08-13] MEDS: HEPARIN SOD 5,000 UNIT/0.5 ML VIAL SQ SCH ×2 (06:46→14:33)
[2019-08-13 07:45] LABS: Appearance Urine Clear (Clear); Bilirubin Urine Negative (Negative); Blood Urine Negative (Negative); Color Urine Yellow; Glucose Urine UA Negative (Negative); Ketones Urine Negative (Negative); Leukocyte Esterase Urine Negative (Negative); Nitrite Urine Negative (Negative); Protein Urine Negative (Negative); Specific Gravity Urine 1.014 (1.000-1.030); Urobilinogen Urine Negative (Negative)
[2019-08-13] MEDS: INSULIN ASPART 100 UNITS/ML 3 ML PEN SC SCH ×2 (08:40→12:53)
[2019-08-13] MEDS: FENOFIBRATE NANOCRYSTALLIZED 145 MG TABLET PO SCH (09:32)
[2019-08-13] MEDS: CITALOPRAM 40 MG TAB PO SCH (09:32)
--- NOTE | 2019-08-13 14:00 | Hospitalist Progress Note ---
Date of Service August 13, 2019 Assessment & Plan (1) Syncope: Present on admission after witness 2 syncopal episodes after having abdominal pain and vomiting Possible related to vasovagal Carotid doppler showed no hemodynamically significant stenosis or significant atherosclerotic plaquing. ECHO showed no wall motion abnormality with EF btw 55-60 % No focal neuro deficit Continue monitor closely Resolved (2) Abdominal pain: Abdominal hernia CT abd/pelvis showed moderate constipation and nonspecific mesenteric haziness, which is of indeterminant etiology and significance. Surgery on board and no surgical intervention required at this time Tolerated diet Stable (3) Back pain with left-sided radiculopathy: Chronic back pain was schedule to have a MRI of the back yesterday but ended up in the hospital Continue pain control with IV morphine and oxycodone Case discussed with Dr. Walton and recommended to get the MRI without contrast of the back MRI done showed moderate degenerative disc changes throughout. Moderate rather significant multifactorial spinal stenosis L3-L4. Broad-based bulging disc L4-L5 and L5-S1 with minimal disc bulges at L2-L3 Dr. Walton (No official consult place) came to discussed the MRI finding with patient and son Dr. Walton recommended no surgical intervention for now, will conservative management Office of Dr. Walton will arrange for Steroid injection to be given by pain management outpatient OK with ortho to try medrol dose pack Follow up with ortho outpatient Diabetes type 2 Continue to hold metformin Hba1c 7.2 On Novolog sliding scale Will resume metformin on discharge Monitor BS Constipation Related to opioid Continue Miralax prn Obesity Counseling on weight loss DVT px on Heparin subq CODE STATUS FULL CODE Disposition Discharge home today Admission and Anticipated Discharge Date Admission Date: August 11, 2019 Subjective Pt was seen and examined Lying in bed with no distress Pt said that the dilaudid helps with the pain He said that pain worsening with movement Dr. Walton and myself reviewed the MRI result with patient and son Denies any chest pain, palpitation, dizziness and SOB Physical Exam Physical Exam: General- No acute distress Head- atraumatic Eyes- PERRL, EOMI, ENT- oropharynx clear Neck- supple, no JVD Lungs- clear to auscultation Heart- regular rhythm; no murmur Abdomen- normal bowel sounds, +mild tenderness, +abdominal hernia Extremities- no calf tenderness Neuro- alert, oriented x 3; PERRL, EOMI; no facial palsy; no dysarthria Skin- warm & dry Results & Data ([facility]) Vital Signs (Past 12 Hours) Vital Signs Temp Pulse Pulse Resp BP BP Pulse Ox 08/13/19 11:55 36.7 C 70 20 148/83 H 94 08/13/19 08:03 36.6 C 76 20 169/82 H 95 08/13/19 08:00 75 08/13/19 04:00 36.3 C L 70 16 163/84 H 95 (1) Syncope Syncope type: unspecified Qualified Code(s): R55 - Syncope and collapse (2) Abdominal pain Abdominal location: unspecified location Qualified Code(s): R10.9 - Unspecified abdominal pain
--- NOTE | 2019-08-15 08:34 | Discharge Summary ---
Date of Service August 13, 2019 Admission HPI Per Admitting Provider 69 yo M with PMH of Diabetes, chronic back pain, obesity was brought to the ER for syncopal episodes. Pt said that while on his way to get his MRI back, he said that he developed severe abdominal pain where he felt that he had to use the bathroom and sweating. He said that he felt dizzy. He said that his son was driving and pulled over. He said that he vomited and passed out. The son said that his eyes were rolling and his dad was unresponsive for about 2 minutes. Son said that he was scared and started to do CPR on his dad. He said that his dad was soak with sweat. Pt has a second episode of syncope while coming to the hospital by EMS. as per EMS his BP dropped during the episode. Pt said that he did not have any chest pain or palpitation during the episode. Pt said that he has been having a lot of back pain that radiating to his LLE. He said that he was scheduled to have an MRI done today. Son said that his abdominal hernia is getting bigger and causing him to have abdominal tenderness. Currently pt denies any chest pain, palpitation, dizziness and SOB. Admission Exam Per Admitting Provider General- No acute distress Head- atraumatic Eyes- PERRL, EOMI, ENT- oropharynx clear Neck- supple, no JVD Lungs- clear to auscultation Heart- regular rhythm; no murmur Abdomen- normal bowel sounds, +tenderness, +abdominal hernia Extremities- no calf tenderness Neuro- alert, oriented x 3; PERRL, EOMI; no facial palsy; no dysarthria Skin- warm & dry Principal Diagnosis Syncope: Abdominal pain: Back pain with left-sided radiculopathy: Diabetes type 2 Obesity Discharge Exam General- No acute distress Head- atraumatic Eyes- PERRL, EOMI, ENT- oropharynx clear Neck- supple, no JVD Lungs- clear to auscultation Heart- regular rhythm; no murmur Abdomen- normal bowel sounds, +mild tenderness, +abdominal hernia Extremities- no calf tenderness Neuro- alert, oriented x 3; PERRL, EOMI; no facial palsy; no dysarthria Skin- warm & dry Discharge Data Allergies Allergy/AdvReac Type Severity Reaction Status Date / Time No Known Allergies Allergy Unverified 08/11/19 14:52 Consultations 08/11/19 17:29 ED Decision to Admit Stat 08/11/19 19:54 Consult General Surgery Routine Ordered Studies 08/11/19 14:07 US point of care ultrasound Stat 08/11/19 14:23 CT abd pelvis wo con Stat 08/12/19 10:00 US carotid doppler BI Routine 08/12/19 15:29 MR lumbar spine wo con Routine CT SCAN OF THE ABDOMEN AND PELVIS WITHOUT IV CONTRAST CLINICAL HISTORY: Syncope. Generalized abdominal pain. COMPARISON STUDY: Radiographs of the lumbar spine dated 07/14/2019. TECHNIQUE: CT scan of the abdomen and pelvis is performed from the lung bases to the proximal femora. Images are reviewed in the axial, sagittal, and coronal planes. IV contrast was not administered for this examination as per the referring clinician. Note that the examination was performed in suboptimal fashion without oral and IV contrast. A dose lowering technique was utilized adhering to the principles of ALARA. CT DOSE: 882.89 mGy.cm FINDINGS: Lung bases: The heart is normal in size and without pericardial effusion. There is a calcified granuloma present in the left lower lobe. The lung bases are otherwise clear noting dependent atelectasis. A metallic foreign body is present within the right anterior chest wall as seen on image #98. A small hiatal hernia is observed. Liver: The unenhanced liver is normal in size, contour, and attenuation. There is no intrahepatic biliary ductal dilatation. Gallbladder: Unremarkable. Spleen: Normal in size and attenuation. Scattered calcified splenic granulomas are noted. Pancreas: The unenhanced pancreas is moderately atrophic and grossly unremarkable. Adrenal glands: Unremarkable. Kidneys: The unenhanced kidneys demonstrate cortical atrophy and are without hydronephrosis. There is a 4 mm nonobstructing calculus is noted on the right. There is no evidence of contour deforming renal mass lesion. Abdominal vasculature: The abdominal aorta is normal in course and caliber noting mild atherosclerotic calcification. Bowel: There is no bowel obstruction. Moderate constipation is observed. The appendix is well-visualized and normal. Peritoneum: There is no intraperitoneal free air or abdominal ascites. There is mild nonspecific haziness in the central mesentery. A small fat-containing umbilical hernia is noted. Lymphadenopathy: None. Pelvic viscera: The bladder, prostate, and seminal vesicles are normal as visualized. Skeletal structures: The skeletal structures are osteopenic. No lytic or blastic lesions are seen. IMPRESSION: 1. There is no evidence of solid organ injury in the abdomen or pelvis on this unenhanced examination. 2. Moderate constipation. 3. There is nonspecific mesenteric haziness, which is of indeterminant etiology and significance. 4. Right-sided nephrolithiasis. 5. Additional findings as above. ACT 112: Negative or not required by law. Electronically signed by: Juan Carlos Alcocer M.D. 08/11/2019 3:23 PM Dictated: 08/11/19 1509 Transcribed: 08/11/19 1516 SINGLE VIEW CHEST CLINICAL HISTORY: Syncope. FINDINGS: An AP, portable, upright chest radiograph is compared to study dated 05/03/2010. The heart is enlarged. The pulmonary vasculature is noncongested. There is elevation of the right hemidiaphragm with associated atelectasis. No airspace consolidation or large pleural effusion is identified. No pneumothorax is seen. The skeletal structures are osteopenic. The bony thorax is grossly intact. Degenerative change is noted in the shoulders. A punctate metallic foreign body projects over the right lower chest. IMPRESSION: Cardiomegaly with no acute cardiopulmonary abnormality. ACT 112: Negative or not required by law. Electronically signed by: Juan Carlos Alcocer M.D. 08/11/2019 2:58 PM Dictated: 08/11/19 1457 Transcribed: 08/11/19 1457 US carotid doppler BI CLINICAL HISTORY: 69 years-old Male with syncope. Acute syncopal event COMPARISON: None TECHNIQUE: Multiple real time sonographic images of the carotid bifurcations were obtained assessing arredondo scale, color Doppler and spectral wave form appearance FINDINGS: RIGHT CAROTID: The peak systolic velocity within the right ICA is measured at62 cm/sec. The end diastolic velocity measured 25 cm/sec. The ICA to CCA ratio measured 0.8 which correlates with a stenosis of 0-50%. Mild mixed plaque of the right carotid bulb and proximal right ICA. LEFT CAROTID: The peak systolic velocity within the left ICA is measured at59 cm/sec. The end diastolic velocity measured 25 cm/sec. The ICA to CCA ratio measured 0.7 which correlates with a stenosis of 0-50%. Mild mixed plaque of the left carotid bulb and proximal left ICA. There is normal antegrade vertebral flow bilaterally. Blood pressures were not conducted secondary to patient's upper extremity IV catheter. IMPRESSION: 1. No hemodynamically significant stenosis or significant atherosclerotic plaquing. 2. Normal antegrade vertebral flow bilaterally. ACT 112: Negative or not required by law. The above report was generated using voice recognition software. It may contain grammatical, syntax or spelling errors. Electronically signed by: Benji Rodriguez M.D. 08/12/2019 10:34 AM Dictated: 08/12/19 1032 Transcribed: 08/12/191031 MR lumbar spine wo con HISTORY: Back pain. Radiculopathy. back pain radiating to the back TECHNIQUE: Multiplanar multisequence MRI of the lumbar spine was performed without the use of contrast. COMPARISON: None. FINDINGS: For the purpose of the report the L5-S1 disc space will be located on axial image 27 of 30. Moderate degenerative disc changes throughout. Benign vertebral body hemangioma at L3. Moderate degenerative change vertebral endplates. L1-L2: No significant central canal or neural foraminal narrowing. L2-L3: Mild broad-based bulging disc. Mild impact anterior thecal sac. Minimal narrowing of the neural foramina. L3-L4: Moderate multifactorial spinal stenosis. Broad-based disc herniation. Hypertrophic change posterior elements. Moderate narrowing of the neural foramina bilaterally. L4-L5: Mild multifactorial narrowing of the spinal canal. Mild broad-based bulging disc. Minimal impact upon the neural foramina. L5-S1: Broad-based left central bulging disc. Moderate narrowing left neural foramina. Minimal impact anterior thecal sac. Moderate deterioration of the posterior elements. IMPRESSION: 1. Moderate degenerative disc changes throughout. 2. Moderate rather significant multifactorial spinal stenosis L3-L4. 3. Broad-based bulging disc L4-L5 and L5-S1 with minimal disc bulges at L2-L3 ACT 112: Negative or not required by law. The above report was generated using voice recognition software. It may contain grammatical, syntax or spelling errors. Electronically signed by: Barrett Gusman M.D. 08/12/2019 9:35 PM Dictated: 08/12/192132 Transcribed: 08/12/192132 Hospital Course (1) Syncope: Present on admission after witness 2 syncopal episodes after having abdominal pain and vomiting Possible related to vasovagal Carotid doppler showed no hemodynamically significant stenosis or significant atherosclerotic plaquing. ECHO showed no wall motion abnormality with EF btw 55-60 % No focal neuro deficit Continue monitor closely Resolved (2) Abdominal pain: Abdominal hernia CT abd/pelvis showed moderate constipation and nonspecific mesenteric haziness, which is of indeterminant etiology and significance. Surgery on board and no surgical intervention required at this time Tolerated diet Stable (3) Back pain with left-sided radiculopathy: Chronic back pain was schedule to have a MRI of the back yesterday but ended up in the hospital Continue pain control with IV morphine and oxycodone Case discussed with Dr. Walton and recommended to get the MRI without contrast of the back MRI done showed moderate degenerative disc changes throughout. Moderate rather significant multifactorial spinal stenosis L3-L4. Broad-based bulging disc L4-L5 and L5-S1 with minimal disc bulges at L2-L3 Dr. Walton (No official consult place) came to discussed the MRI finding with patient and son Dr. Walton recommended no surgical intervention for now, will conservative management Office of Dr. Walton will arrange for Steroid injection to be given by pain management outpatient [place] with ortho to try medrol dose pack Follow up with ortho outpatient Diabetes type 2 Continue to hold metformin Hba1c 7.2 On Novolog sliding scale Will resume metformin on discharge Monitor BS Constipation Related to opioid Continue Miralax prn Obesity Counseling on weight loss DVT px on Heparin subq CODE STATUS FULL CODE Disposition Discharge home today Total Time Total Time Spent Total Time Spent (In Minutes): 35 minutes Total Time Includes: Examination of the Patient, Discharge Planning, Medication Reconciliation, Communication With Other Providers and Other Discharge Plan Discharge Items Patient Disposition: Home - Self-Care Reason For Visit: SYNCOPE Discharge Diagnosis: Syncope: Abdominal pain: Back pain with left-sided radiculopathy: Diabetes type 2 Activity: Resume your previous activity Non-emergency contact: Primary Care Provider Call non-emergency contact if: you have any medication questions and your pain is worsening Follow-up/Referrals: Geoff Osman DO [Surgeon] - Evita Thakkar DO [Primary Care Provider] - 08/17/19 10:00 am ([facility]) Diet: Carb Consistent or DM2 Addtl Attending Provider Instructions: Follow up with your primary care provider in 1 week Follow up with [facility] General surgery Dr. Osman for the umbilical hernia if you choose to Follow up with Orthopedic Dr. Walton for the back pain (Dr. Walton's office will call you to arrange for the steroid injection with pain management) Fall precaution Monitor your blood sugar and follow a health diabetes diet and limited concentrated sweet intake Monitor your blood sugar while on Medrol dose yahir Do not drive or operate any machine while on narcotic Pending Studies at Discharge: No Stand-Alone Forms: [facility], Opioid Pain Management, Smoking Cessation Medications and DC Order Prescriptions: New polyethylene glycol 3350 [Miralax] 17 gram Powder In Packet 17 g PO DAILY PRN (Reason: constipation) Qty: 30 RF: 0 methylprednisolone [Medrol (Yahir)] 4 mg tablets,dose pack 4 mg PO UD Qty: 21 RF: 0 Continued citalopram 40 mg tablet 40 mg PO QAM RF: 0 metformin 1,000 mg tablet 1,000 mg PO BID RF: 0 oxycodone-acetaminophen [Percocet] 5-325 mg tablet 1 tab PO Q6H PRN (Reason: Pain) RF: 0 cyclobenzaprine 10 mg tablet 10 mg PO TID PRN (Reason: Muscle Spasm) RF: 0 naproxen [Naprosyn] 500 mg Tablet 500 mg PO BID PRN (Reason: Pain) RF: 0 fenofibrate nanocrystallized 145 mg tablet 145 mg PO QAM RF: 0 Equate Multivitamin Gummie Vit 2 tab PO QAM RF: 0 Discharge Orders: Discharge Order (Routine); Ordered 08/13/19 Ordered By: Sharmila Nickerson/Other Patient Handouts: Diabetes Type 2 Coping, Diabetes Healthy Meals, Diabetes Meal Planning, A1C Admission Data Admit Date/Time: 08/11/19 19:06 Attending Provider: Sharmila Calderón Admit Provider: Sharmila Calderón Primary Care Provider: Evita Thakkar Other Providers: Sharmila Calderón ; Paulo Mason Other Interventions: Discharge Summary Assessment (RN) Last Done: 08/13/19 14:11 DC Date/Time DO NOT enter until pt leaves facility: 08/13/19 15:45
== END 2019-08-13 15:45 | disposition home or self-care (01) ==
LOC: 2S 14:03 → ED 14:03 → 2S 19:17